=== PATIENT | female | born 1970 | race Caucasian/White ===

== ENCOUNTER 2017-03-23 03:24 | Inpatient (IN) | payer OTHER ==
[2017-03-23] VITALS (230 sets, daily range): BP systolic 147–164; BP diastolic 90–110; PULSE 76–93; TEMP 97.1–98.3; O2SAT 93–100
[~2017-03-23] VITALS: Ht 149.9 cm; Wt 73.6 kg
[2017-03-23 04:43] LABS: BASO # 0.1 (0.0-0.2); BASO % 0.9 % (0.0-2.0); EOS # 0.2 (0.0-0.7); EOS % 3.5 % (0-4.0); GRAN % 60.9 % (42.2-75.2); LYMPH # 1.9 (1.2-3.4); LYMPH % 28.7 % (20.0-51.0); MEAN CELL VOLUME 82 fl (80.0-100.0); MEAN CORPUSCULAR HGB CONC 33 g/dl (33.0-37.0); MEAN PLATELET VOLUME 10.5 fl (7.4-10.4); MONO # 0.4 (0.1-0.6); MONO % 5.8 % (1.7-9.3); PLATELET COUNT 208 K/mm3 (130-400); RED BLOOD COUNT 4.44 M/mm3 (4.10-5.30); WHITE BLOOD COUNT 6.5 K/mm3 (4.8-10.8)
[2017-03-23 04:50] LABS: HEMATOCRIT 36.3 % (37.0-47.0); HEMOGLOBIN 11.9 g/dl (12.5-16.0); MEAN CORPUSCULAR HEMOGLOBIN 27 pg (27.0-31.0)
[2017-03-23 04:58] LABS: ALANINE AMINOTRANSFERASE 18 U/L (9-52); ALBUMIN 4.4 gm/dL (3.5-5.0); ALKALINE PHOSPHATASE 88 U/L (50-136); ANION GAP 13 mmol/L (7-16); BILIRUBIN,TOTAL 0.4 mg/dL (0.0-1.0); BLOOD UREA NITROGEN 15 mg/dL (7-17); CALCIUM 10.3 mg/dL (8.4-10.2); CARBON DIOXIDE 26 mmol/L (22-30); CHLORIDE 101 mmol/L (98-107); CREATININE, serum 0.64 mg/dL (0.52-1.25); GLUCOSE 95 mg/dL (74-106); LIPASE 39 U/L (23-300); POTASSIUM 3.8 mmol/L (3.4-5.0); SODIUM 139 mmol/L (137-145); TOTAL PROTEIN 7.6 gm/dL (6.4-8.2)
[2017-03-23 05:10] LABS: B-TYPE NATRIURETIC PEPTIDE 358 pg/mL (0-125)
[2017-03-23 05:11] LABS: TROPONIN-I < 0.012 ng/mL (0.000-0.034)
[2017-03-23] MEDS ORDERED: LOPRESSOR 550 MG/TAB PO (06:13)
[2017-03-23 13:03] LABS: MAGNESIUM 1.6 mg/dL (1.6-2.3)
[2017-03-23 22:22] LABS: PH 6 (5-8); SQUAMOUS EPITHELIAL 0-2 /hpf; URINE APPEARANCE Clear; URINE BACTERIA None Seen /hpf; URINE BILIRUBIN Negative (NEGATIVE); URINE BLOOD Negative (NEGATIVE); URINE COLOR Yellow; URINE GLUCOSE Negative (NEGATIVE); URINE KETONE Negative (NEGATIVE); URINE UROBILINOGEN Negative (NEGATIVE); URINE WBC 0-2 /hpf
[2017-03-23 22:23] LABS: URINE RBC 0-2 /hpf
[2017-03-23 22:43] LABS: AMPHETAMINE URINE NEGATIVE; BARBITURATES URINE NEGATIVE; BENZODIAZEPINES URINE NEGATIVE; BUPRENORPHINE URINE NEGATIVE; METHADONE URINE NEGATIVE; OPIATES URINE NEGATIVE; OXYCODONE URINE NEGATIVE; PHENCYCLIDINE URINE NEGATIVE; PROPOXYPHENE URINE NEGATIVE; THC CANNABINOIDS URINE NEGATIVE
[2017-03-24 03:38] VITALS: BP 156/92; PULSE 85; TEMP 98.5
[2017-03-24 08:23] VITALS: BP 146/87; PULSE 81; TEMP 98.1
[2017-03-24 11:39] VITALS: BP 149/98; PULSE 85; TEMP 97.5
[2017-03-24 15:27] VITALS: PULSE 84; TEMP 98.4
[2017-03-24 20:16] VITALS: BP 152/85; PULSE 84; TEMP 98
[2017-03-25 00:34] VITALS: BP 157/80; PULSE 76; TEMP 97.8
[2017-03-25 04:41] VITALS: BP 144/87; PULSE 80; TEMP 98.2
[2017-03-25 07:35] LABS: CALCIUM 9.7 mg/dL (8.4-10.2); CREATININE, serum 0.67 mg/dL (0.52-1.25); MAGNESIUM 1.8 mg/dL (1.6-2.3); POTASSIUM 3.8 mmol/L (3.4-5.0)
[2017-03-25 08:00] VITALS: BP 136/78; PULSE 80; TEMP 97.7
[2017-03-25] MEDS ORDERED: LIPITOR20 MG PO (09:26)
[2017-03-25] MEDS ORDERED: PLAVIX 75MG TAB75 MG PO (09:26)
[2017-03-25] MEDS ORDERED: MAXZIDE-25MG TA1 TAB PO (09:28)
[2017-03-25] MEDS ORDERED: COREG12.5 MG PO (09:29)
[2017-03-25] MEDS ORDERED: ZESTRIL 20MG TA20 MG PO (09:33)
[2017-03-25] MEDS ORDERED: ASPIRIN E.C. 8181 MG PO (09:34)
[2017-03-25] MEDS ORDERED: PRAVACHOL 40MG40 MG PO (09:36)
== END 2017-03-25 12:31 | disposition home or self-care (01) | DRG 305 ==
LOC: COL.ER 03:24 → ICU 06:40 → MEDICAL 18:17
PROVIDERS: Emergency Medicine; Family Medicine; Internal Medicine
DX: I16.0 Hypertensive urgency (principal); R91.1 Solitary pulmonary nodule; R07.89 Other chest pain; F17.210 Nicotine dependence, cigarettes, uncomplicated; Z91.14 Patient's other noncompliance with medication regimen
CPT/HCPCS: 99223-AI; 99232-AI; 99239; J1650; J2270; Q9967